=== PATIENT | male | born 1980 | race Caucasian/White ===

== ENCOUNTER 2016-11-01 13:35 | Emergency (ER) | payer OTHER ==
[~2016-11-01] VITALS: Ht 182.9 cm; Wt 99.8 kg
--- NOTE | 2016-11-01 14:02 | ED SKIN/ALLERGY COMPLAINT ---
History of Present Illness General Chief Complaint: Skin Rash/ Abcess Stated Complaint: MRSA+ ABCESS BURST Source: patient Exam Limitations: no limitations Vital Signs & Intake/Output Vital Signs & Intake/Output Vital Signs Date Time Temp Pulse Resp B/P Pulse O2 O2 Flow FiO2 Ox Delivery Rate 11/01 1520 99.1 78 18 151/81 96 Room Air 11/01 1341 98.8 94 20 106/75 97 Room Air Room Air Allergies Uncoded Allergies: SURGICAL TAPE (Intermediate, PULLS SKIN OFF 11/01/16) Reconcile Medications Cephalexin (Keflex) 500 MG CAPSULE 1 CAP PO BID CELLULITIS [PREP] (Reported) Sulfamethoxazole/Trimethoprim (Bactrim 400-80 MG Tablet) 400 MG-80 MG TABLET 1 TAB PO BID PRN CELLULITIS Triage Note: PT TO ED WITH ABCESS UNDER LEFT ARM, "IT BURST, I HAD IT 3 TIMES BEFORE, THE LAST IN JUN + MRSA". Triage Nurses Notes Reviewed? yes Onset: Gradual Duration: getting worse Timing: recent history Severity: mild Severity Numbers: 3 Location: torso HPI: Patient is a 36-year-old male with a past medical history of MRSA positive abscess which she states in last 24 hours he noticed a gradual onset of left armpit axilla tender region in which she states that today while moving his left upper extremity the abscess had spontaneously discharge noting purulent discharge however this has resolved. Patient states that many episodes in similar region previously. Denies any fever chills (RYAN DAVIS) Past History Travel History Traveled to [place] past 21 day No Medical History Any Pertinent Medical History? 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 No (RYAN DAVIS) Review of Systems Review of Systems Constitutional: Reports: no symptoms. EENTM: Reports: no symptoms. Respiratory: Reports: no symptoms. Cardiovascular: Reports: no symptoms. GI: Reports: no symptoms. Genitourinary: Reports: no symptoms. Musculoskeletal: Reports: no symptoms. Skin: Reports: see HPI. Neurological/Psychological: Reports: no symptoms. Hematologic/Endocrine: Reports: no symptoms. Immunologic/Allergic: Reports: no symptoms. All Other Systems: Reviewed and Negative (RYAN DAVIS) Physical Exam Physical Exam General Appearance: no apparent distress, alert, comfortable Head: atraumatic Eyes: Bilateral: normal appearance. Ears, Nose, Throat: hearing grossly normal Neck: normal inspection, supple, full range of motion Respiratory: normal breath sounds Cardiovascular: regular rate/rhythm Back: normal inspection Skin: intact Skin Problem Location: torso Lymphatic: no anterior cervical baljinder Diagram Body: 1) Noted left axilla 1 cm fluctuance no active discharge surrounding 2 cm erythema warmth and tenderness (RYAN DAVIS) Progress Differential Diagnosis: abscess/cellulitis, allergic reaction, anaphylaxis, angioedema, drug reaction, erythema multiforme, lyme disease, meningitis/sepsis, piyriasis rosea, RMSF, scarlet fever, shingles, syphilis/gonococcemia, urticaria Plan of Care: Microbiology 11/01 1404 TRUNK: Culture & Sensitivity - CAN Cancelled: Cancelled via OE: NO DISCHARGE/SPECIMEN 11/01 140 TRUNK: Gram Stain - CAN Cancelled: Cancelled via OE: NO DISCHARGE/SPECIMEN Using Betadine for the local sterilization I used 5 mL of 1% lidocaine for local anesthesia which was successful then I made a 1 cm incision with a 11 blade scalpel in which no purulent discharge was produced in which culture was not obtained using Paulina curved clamps there is no reduction of purulence, wick was applied with Tegaderm. Patient tolerated well. Patient will be PRESCRIBED with Bactrim and Keflex. (RYAN DAVIS) Departure Departure Disposition: HOME OR SELF CARE Condition: Stable Clinical Impression Primary Impression: Abscess of axilla, left Secondary Impressions: Cellulitis of axilla, left Referrals: PATIENT HAS NO PRIMARY CARE DR (PCP/Family) Additional Instructions: As discussed begin to apply warm compresses to the area. Begin the prescription of Keflex and Bactrim as directed for the full course. Return to the emergency room in 2 days for wound recheck. If symptoms worsen prior return to emergency room. Prescription is waiting at [facility] Please reapply bandages provided to the emergency room if the applied bandages fall off Departure Forms: Customer Survey General Discharge Information Prescriptions: Current Visit Scripts Sulfamethoxazole/Trimethoprim (Bactrim 400-80 MG Tablet) 1 TAB PO BID PRN CELLULITIS #20 TAB Cephalexin (Keflex) 1 CAP PO BID #20 CAP (RYAN DAVIS) PA/PHARMACY ASSISTANT Co-Sign Statement Statement: ED Attending supervision documentation- [] I saw and evaluated the patient. I have also reviewed all the pertinent lab results and diagnostic results. I agree with the findings and the plan of care as documented in the PA's/PHARMACY ASSISTANT's documentation. [X] I have reviewed the ED Record and agree with the PA's/PHARMACY ASSISTANT's documentation. [] Additions or exceptions (if any) to the PAs/PHARMACY ASSISTANT's note and plan are summarized below: [] (DURAN DIXON,NALDO Wagoner) Procedures Incision and Drainage Site: LEFT AXILLA Blade Size: 11 I & D Procedure: Yes: betadine prep, sterile drapes applied, sterile dressing applied, wick placed. (RYAN DAVIS)
[2016-11-01] MEDS ORDERED: PREP (14:18)
[2016-11-01] MEDS ORDERED: KEFLEX500 M1 PO (15:15)
[2016-11-01] MEDS ORDERED: BACTRIM 400-801 EACH PO (15:15)
[2016-11-01 15:20] VITALS: BP 151/81
== END 2016-11-01 15:38 ==
LOC: ERH 13:35
DX: L02.412 Cutaneous abscess of left axilla (principal); L03.112 Cellulitis of left axilla
CPT/HCPCS: 87070

== ENCOUNTER 2016-11-04 16:17 | Emergency (ER) | payer OTHER ==
[~2016-11-04 16:17] MED LIST: BACTRIM 400-801 EACH PO; KEFLEX500 M1 PO; PREP
[2016-11-04 16:34] VITALS: BP 142/92
--- NOTE | 2016-11-04 18:00 | ED SKIN/ALLERGY COMPLAINT ---
History of Present Illness General Chief Complaint: Suture Removal/Wound Recheck Stated Complaint: WOUND RECHECK Source: patient, old records Exam Limitations: no limitations Vital Signs & Intake/Output Vital Signs & Intake/Output Vital Signs Date Time Temp Pulse Resp B/P Pulse O2 O2 Flow FiO2 Ox Delivery Rate 11/04 1634 97.8 69 15 142/92 97 Room Air Room Air Allergies Uncoded Allergies: SURGICAL TAPE (Intermediate, PULLS SKIN OFF 11/01/16) Reconcile Medications Cephalexin (Keflex) 500 MG CAPSULE 1 CAP PO BID CELLULITIS Oxycodone HCl/Acetaminophen (Percocet 5-325 MG Tablet) 5 MG-325 MG TABLET 1 TAB PO BID PRN pain [PREP] (Reported) Sulfamethoxazole/Trimethoprim (Bactrim 400-80 MG Tablet) 400 MG-80 MG TABLET 1 TAB PO BID PRN CELLULITIS Triage Note: PT TO ED FOR WOUND RE-CHECK. PT HAD L AXILLARY ABCESS DRAINED ON FRIDAY. REPORTS INCREASED DRAINAGE WITH YELLOW PUS, INCREASED REDNESS, AND INCREASED PAIN TO AREA. AREA NOT VISUALIZED IN TRIAGE. DECLINES PAIN MEDS. Triage Nurses Notes Reviewed? yes Onset: Gradual Duration: day(s): (3), constant Timing: recent history Severity: mild, moderate Severity Numbers: 5 Location: extremities Possible Factors: ABSCESS Associated Symptoms: DENIES HPI: 36-year-old male presents emergency room for wound check after he had an abscess incised and drained 3 days ago here in this ER. He is been compliant with taking the Keflex and Bactrim however states that his pain persists. He denies any fever or chills. He states that he has no small amount discharge on the dressing. He denies any rashes to his skin or other abscess. He is not taken anything for his pain.. Pain is worse with palpation there are no modifying factors or associated symptoms otherwise Past History Travel History Traveled to [place] past 21 day No Medical History Any Pertinent Medical History? 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 No Review of Systems Review of Systems Constitutional: Reports: see HPI. All Other Systems: Reviewed and Negative Comments Review of systems: See HPI, All other systems negative. Constitutional, no chills no fever, no malaise HEENT: No visual changes no sore throat no congestion, Cardiovascular: No chest pain , no palpitation , Skin, SEE HPI Respiratory: No dyspnea no cough no sputum GI: No nausea no vomiting, no diarrhea, : No dysuria Muscle skeletal: No joint pain, no joint swelling, no back pain, no neck pain, Neurologic: No numbness no headache Psych: No stress Heme/endocrine: No bruising no bleeding Immunology: No lymphadenopathy Physical Exam Physical Exam General Appearance: well developed/nourished, alert, awake Comments: Well-developed well-nourished patient in no apparent distress. HEENT: Atraumatic, extraocular motion intact Neck: Supple, FROM Back: FROM Cardiovascular: Regular rate and rhythms no murmurs rubs or gallops, Respiratory:. No respiratory distress. Patient speaking in full complete sentences. Breath sounds clear to auscultation bilaterally: NO W/R/R Extremities: full range of motion Neuro: Alert and oriented x3 Skin: Warm & dry; there is no surrounding erythema induration or fluctuance noted to the LEFT AXILLA, no discharge elicited tenderness to palpation Psych: Mood affect normal, normal memory normal judgment. Progress Differential Diagnosis: abscess/cellulitis, contact dermatitis Plan of Care: I discussed with the patient plan of care need to continue with Keflex Bactrim prescription for Percocet was provided advised need for supportive care return this week at anytime with any concerns or worsening of the symptoms answered all his questions he feels comfortable plan I discussed the medications that they will receive with the patient. I gave them signs and symptoms that could indicate an adverse reaction. I have advised them to limit their activities until they can see how they respond to the medication. Departure Departure Time of Disposition: 1815 Disposition: HOME OR SELF CARE Condition: Stable Clinical Impression Primary Impression: Wound check, abscess Referrals: PATIENT HAS NO PRIMARY CARE DR (PCP/Family) Additional Instructions: Percocet for breakthrough pain this prescription was sent to her pharmacy. Continue taking the antibiotics, return anytime sooner with any concerns. This was sent to the [place] pharmacy Departure Forms: Customer Survey General Discharge Information Prescriptions: Current Visit Scripts Oxycodone HCl/Acetaminophen (Percocet 5-325 MG Tablet) 1 TAB PO BID PRN pain #10 TAB
[2016-11-04] MEDS ORDERED: PERCOCET 5-3251 EACH PO (18:17)
== END 2016-11-04 18:20 ==
LOC: ERH 16:17
DX: L02.91 Cutaneous abscess, unspecified (principal)